=== PATIENT | male | born 1960 | race Caucasian/White ===

== ENCOUNTER → 2018-11-23 | Outpatient (CLI) | payer OTHER ==
--- NOTE | 2018-11-23 10:27 | XR ---
EXAMINATION TYPE: XR shoulder complete LT DATE OF EXAM: 11/23/2018 CLINICAL HISTORY: Left shoulder pain after injury approximately 2 months ago TECHNIQUE: Three views of the left shoulder are obtained. COMPARISON: None. FINDINGS: There is no acute fracture/dislocation evident in the left shoulder. The acromioclavicula r and glenohumeral joint spaces appear aligned. Minimal acromio clavicular arthropathy is seen on the left with small marginal osteophytes. Punctate calcifications along the rotator cuff insertion are s een. The visualized ribs are intact and unremarkable. IMPRESSION: 1. No acute fracture or dislocation in the left shoulder. 2. Mild left acromioclavicular arthropathy. 3. Calcific tendinosis of the insertional fibers of the rotator cuff.
== END | disposition home or self-care (01) ==
LOC: RADXRMAIN 09:56
PROVIDERS: ATTEND Emergency Medicine
DX: M19.012 Primary osteoarthritis, left shoulder (principal); M67.814 Other specified disorders of tendon, left shoulder

== ENCOUNTER → 2019-12-09 | Outpatient (CLI) | payer BC ==
--- NOTE | 2019-12-11 10:31 | PE ---
EXAMINATION TYPE: PET CT fusion whole body DATE OF EXAM: 12/09/2019 COMPARISON: NONE HISTORY: Malignant melanoma had on arm one year ago and now excised from year in July 2019. TECHNIQUE: Following the intravenous administration of 13.26 mCi of F-18 FDG, whole body images are performed from the top of skull to the bottom of feet. Images are reviewed on the computer in the co vannessa, axial, and sagittal planes. Reconstructed rotating images are created on independent workstat ion and reviewed on the computer. A noncontrast CT is performed in conjunction with the PET scan. SCAN: Initial Scan FINDINGS: HEAD AND NECK: No suspicious hypermetabolic soft tissue nodules in the head or neck identified. No s uspicious uptake at level of the ears bilaterally. CHEST, MEDIASTINUM, AND HILAR REGION: No suspicious areas of abnormal hypermetabolic uptake. ABDOMEN AND PELVIS: Normal excretion is seen. No areas of suspicious hypermetabolic uptake noted. No suspicious hypermetabolic uptake in the bilateral groin. OSSEOUS STRUCTURES: No areas of suspicious hypermetabolic uptake. LOWER EXTREMITY: Mild uptake at first metatarsophalangeal joint greater on the right consistent with bunion and degenerative change. Mild uptake region of right medial malleolus presumed degenerative o r inflammatory change. No suspicious hypermetabolic soft tissue nodules or masses identified. OTHER CT: Moderate to severe calcified plaque right greater than left bilateral carotid bulbs. Moderate three-vessel coronary artery calcification which is noted marker for underlying coronary art moira disease. Moderate-sized hiatal hernia. Cholecystectomy clips. Large prostate gland consistent with BPH. Scattered bilateral pelvic phlebolit hs. Mild to moderate disc space narrowing lower lumbar spine. Small to moderate size left greater josette n right scrotal fluid collection or hydroceles. [place] moderate tricompartment joint space loss and spurring in both knees. IMPRESSION: No suspicious hypermetabolic uptake in skin or subcutaneous nodules or adenopathy to sugg est new or recurrent melanoma deposits or adenopathy.
== END | disposition home or self-care (01) ==
LOC: RADPETMAIN 14:00
PROVIDERS: ATTEND Family Medicine
DX: C43.8 Malignant melanoma of overlapping sites of skin (principal)
CPT/HCPCS: 78816; A9552

== ENCOUNTER → 2020-04-09 | Outpatient (CLI) | payer OTHER ==
--- NOTE | 2020-04-09 15:17 | FL ---
EXAMINATION TYPE: Left shoulder fluoroscopic-guided arthrogram injection. DATE OF EXAM: 04/09/2020 HISTORY: 59-year-old male M25.512, history of rotator cuff repair in 2019, pain. PROCEDURES: 1. Left shoulder fluoroscopy. 2. Left shoulder arthrogram. Total fluoroscopy time: 38 seconds. Total images: 2. TECHNIQUE: The procedure, risks, and alternatives, were discussed with the patient, who requested that jj hart. The consent form was signed, and teach-back occurred. The site/side of the procedure was marked with a line with participation by the patient. The accompan milly paperwork was verified for consistency. A directed history and physical exam was performed prior to the procedure. Medication reconciliation was performed by ancillary personnel. A critical pause was performed with assisting personnel just pr ior to the procedure, and the patient's identity was confirmed using 2 identifiers. Imaging guidance was utilized to select the precise skin entry point just prior to the procedure. The left shoulder was prepped and draped in the usual sterile fashion and local 1% lidocaine anesthes ia was instilled. Under fluoroscopic guidance, a 22 gauge spinal needle was introduced into the ante rior left glenohumeral joint. Appropriate needle tip position was confirmed after a small amount of c ontrast injection. Approximately 12 ml of a mixture of Isovue 300 iodinated contrast , sterile saline, and Gadavist was injected into the glenohumeral joint. The needle was then removed. The patient tolerated the procedur e well. A post-procedure note was placed into the medical record. There was no immediate complication. After the procedure, the patient's condition was unchanged. Estimated blood loss was minimal. IMPRESSION: Technically successful left shoulder arthrogram injection for MRI. No immediate complication.
--- NOTE | 2020-04-10 17:04 | MR ---
EXAMINATION TYPE: MRI arthrogram left shoulder DATE OF EXAM: 04/09/2020 COMPARISON: Arthrogram 04/09/2020 HISTORY: 59-year-old male M25.512. Pain in left shoulder, tear/rupture, impingement. History of rotat or cuff repair approximately one year ago. TECHNIQUE: Multiplanar, multisequence images of the left shoulder were obtained after intra-articular administration of a gadolinium mixture. Please refer to arthrogram injection report of the same day for further details. FINDINGS: Long head biceps tendon appears grossly intact. The tendon is appropriately situated along the bicipi lelo groove. Some heterogeneity of the subscapularis tendon which remains intact. A suture anchor seems to be pres ent at the lesser tuberosity. Additional single lateral suture anchor at the greater tuberosity but with a massive full-thickness t ear of the entire supraspinatus and infraspinatus tendons. The stump is retracted medially to the lev el of the glenoid by approximately 5 cm. There is mild fatty infiltration noted of the infraspinatus muscle belly and minimal fatty streaks in the supraspinatus muscle belly. Injected contrast freely communicating between the subacromial size subdeltoid bursa and the glenohum eral joint. There is mild diffuse thinning of superior humeral head articular cartilage with a tiny inferior destinee ral head spur. No discrete labral tear given on the radiographic technique and no para labral cyst. There is a 1.6 cm long screw floating within the superior subscapularis recess, refer to coronal seri es 301 image 5 and axial series 201 image 13. Moderate degenerative change of the acromioclavicular joint with prominent inferior spurring from the distal clavicle. No Hill-Sachs deformity or os acromiale. No obvious edema along the upper humeral shaft to suggest a large rupture of the pectoralis major ins ertion. IMPRESSION: 1. Massive full thickness re-tear involving the entire supraspinatus and infraspinatus tendons. Stump retracted 5 cm to the level of the glenoid. 2. Note a 1.6 cm long screw floating within the superior subscapularis recess. 3. Mild fatty infiltration of the infraspinatus muscle belly and minimal fatty streaks in the suprasp inatus muscle belly. Overall muscle bulk is maintained at this time. 4. Moderate AC joint OA. Prominent inferior spurring from the distal clavicle.
== END | disposition home or self-care (01) ==
LOC: RADFLMAIN 12:36
PROVIDERS: ATTEND Orthopaedic Surgery Sports Medicine
DX: M25.512 Pain in left shoulder (principal)
CPT/HCPCS: 23350; 73040; 73222; A9585; Q9967

== ENCOUNTER → 2022-04-01 | Outpatient (CLI) | payer BC ==
--- NOTE | 2022-04-01 11:24 | CA ---
Exercise Stress Test Report Name: Gumaro Lagunas Exam Date: 04/01/2022 09:03 Exam Location: [place] Stress Ht (in): 70 Wt (lb): 185 BSA: 2.02 Ordering Phys: Alfredo Barrett MD Referring Phys: Violet Martin PAC Technologist: Everton Turner Age: 61 Gender: M : 1960 Procedure CPT: Indications: E78.5 hyperlipodemia ICD-10 Codes: Patient History: Palpitations, hyperlipidemia and hypertension Medications: PRILOSEC,,,,,, IRON,,,,,, LIBALO,,,,, Meds past 24 hrs: Pretest Chest Pain: STRESS TEST Abhijit Protocol Exercise Duration (min:sec): 12:[address] Depressions (mm): Angina Score: Gonzalez Score: Resting HR (bpm): 80 Peak HR (bpm): 167 Resting BP (mmHg): 124 / 87 Peak BP (mmHg): 198 / 82 MPHR: 157 Target HR: 133 % MPHR: 106 METS: 12.1 Total Dose: Peak Dose: Atropine: Double Product: 17602 BP Response: Stress Termination: TARGET HR REACHED/MAX EXERTION Stress Symptoms: NO SYMPTOMS Stress Summary: ECG ANALYSIS Resting ECG: Normal sinus rhythm normal axis normal intervals Stress ECG: Patient exercised on Abhijit protocol for 12 minutes achieving 13 mets 85% of predicted maximal heart rate without chest pain or diagnostic ST segment depression CONCLUSIONS Excellent exercise tolerance Negative stress test by EKG criteria Dr. Emile Kilgore MD (Electronically Signed) Final Date: 01 April 2022 11:24
== END | disposition home or self-care (01) ==
LOC: RADNMMAIN 08:30
PROVIDERS: ATTEND Family Medicine
DX: E78.5 Hyperlipidemia, unspecified (principal)
CPT/HCPCS: 93017